=== PATIENT | male | born 1990 | race Caucasian/White ===

== ENCOUNTER 2020-06-27 20:23 | Emergency (ER) | payer BC ==
[2020-06-27] MEDS ORDERED: Amoxicillin/Potassium Clav 875 MG TAB ONE (21:31)
[2020-06-27] MEDS ORDERED: Boostrix 0.5 ML (Tdap) VIAL ONE (21:31)
== END 2020-06-27 21:54 | disposition home or self-care (01) ==
LOC: NAV ERS 20:23
DX: S61.451A Open bite of right hand, initial encounter (principal); F17.220 Nicotine dependence, chewing tobacco, uncomplicated; W55.01XA Bitten by cat, initial encounter
CPT/HCPCS: 90471; 90715